=== PATIENT | male | born 1955 | race American Indian/Alaskan Native ===

== ENCOUNTER 2017-10-22 01:00 | Emergency (ER) | payer BC, MEDICARE ==
[2017-10-22] MEDS ORDERED: NACL 0.9% 1000 ML 1,000 ML ONE (01:23)
[2017-10-22] MEDS ORDERED: KEPPRA 1,000 MG/NS 0.75% 100ML 1,000 MG/100 ML BAG IV ONE (01:24)
[2017-10-22 01:52] LABS: Basophils % (Auto) 0.3 % (0.0-1.8); Eosinophils % (Auto) 0.2 % (0.0-4.3); Hematocrit 37.4 % (35.5-45.6); Hemoglobin 12.3 gm/dl (11.8-15.2); Mean Corpuscular HGB Conc 33 % (32-34); Mean Corpuscular Hemoglobin 29 pg (28-32); Mean Corpuscular Volume 89 fl (84-94); Platelet Count 253 K/mm3 (140-440); Red Blood Count 4.21 M/mm3 (3.65-5.03); Red Cell Distribution Width 16.9 % (13.2-15.2); White Blood Count 12.6 K/mm3 (4.5-11.0)
[2017-10-22 02:07] LABS: Bilirubin,Urine NEG (Negative); Blood,Urine NEG (Negative); Ketones,Urine NEG (Negative); Leukocyte Esterase,Urine NEG (Negative); Mucus,Urine FEW /HPF; Nitrite,Urine NEG (Negative); Protein,Urine <15 mg/dL mg/dL (Negative); Urobilinogen,Urine < 2.0 mg/dL (<2.0)
[2017-10-22 02:17] LABS: Alanine Aminotransferase 33 units/L (7-56); Albumin 3.6 g/dL (3.9-5); Albumin/Globulin Ratio 1.4 %; Alkaline Phosphatase 85 units/L (35-129); BUN/Creatinine Ratio 20; Blood Urea Nitrogen 16 mg/dL (9-20); Calcium 9.1 mg/dL (8.4-10.2); Carbon Dioxide 30 mmol/L (22-30); Creatine Kinase 109 units/L (55-170); Creatine Kinase MB 2.9 ng/mL (0.0-4.0); Glucose 91 mg/dL (75-100); Total Protein 6.1 g/dL (6.3-8.2)
--- NOTE | 2017-10-22 03:07 | XRay Report ---
FINAL REPORT EXAM: XR CHEST 1V AP HISTORY: CHF TECHNIQUE: A portable upright view of the chest was submitted. FINDINGS: The heart is mildly enlarged. The lungs appear congested. There is an area of alveolar consolidation in the right upper lobe which is indeterminate. Pleural fluid is not seen. The thoracic aorta is mildly tortuous. The skeletal structures do not show any acute changes. IMPRESSION: Cardiomegaly with pulmonary vascular congestion. Indeterminate area of alveolar consolidation in the right upper lobe.
[2017-10-22 03:38] LABS: Anion Gap 17 mmol/L; Chloride 98.3 mmol/L (98-107); Cholesterol 136 mg/dL (50-199); HDL Cholesterol 82 mg/dL (40-59); LDL Cholesterol,Direct 44 mg/dL (50-130); Potassium 4.3 mmol/L (3.6-5.0); Sodium 141 mmol/L (137-145); Triglycerides 52 mg/dL (2-149)
--- NOTE | 2017-10-22 04:28 | Cat Scan Report ---
FINAL REPORT EXAM: CT HEAD/BRAIN WO CON HISTORY: ams TECHNIQUE: Routine axial imaging was obtained of the brain without IV contrast. There are no previous studies available for comparison FINDINGS: There is an irregular area of diminished attenuation centered in the white matter of the right frontal lobe and adjacent temporal lobe extending partially out into the cortex. There is associated right to left subfalcine shift of 4.8 millimeters. The overall findings are compatible with an invasive neoplasm. There is no evidence of hemorrhage or infarct. The ventricular system otherwise is normal in size. The basal cisterns appear well maintained. The sinuses reveal mucosal thickening in the left maxillary sinus. The mastoid air cells are well pneumatized. 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 MRI is recommended for further evaluation No evidence of acute stroke or hemorrhage otherwise. Mucosal thickening in the left max sinus.
--- NOTE | 2017-10-22 04:36 | Emergency Department Report ---
ED Altered Mental Status HPI - General Chief Complaint: Seizure Stated Complaint: SEIZURE Time Seen by Provider: 10/22/17 01:22 Source: EMS Mode of arrival: Stretcher Limitations: Altered Mental Status - History of Present Illness Initial Comments: 62 YO MALE WITH LUNG CANCER DX SEP 15, 2017, BROUGHT I BY EMS IN STATUS EPILEPTICUS. PT WAS FOUND SEIZING AT 12 MIDNIGHT ON THE FLOOR. HE WAS LAST SEEN WATCHING TV AND NEUROLOGICALLY NORMAL. HE WAS GIVEN 4MG OF VERSED AND 2G OF MAGNESIUM SULFATE BY EMS. PT RECEIVED ATIVAN 2MG AND 1000MG OF KEPPRA IMMEDIATELY WHEN HE CAME TO [facility] ED. PT PLACED ON FACE MASK AND CONTINUED TO BREATHE ON HIS OWN. H/O LUNG CANCER WITH METASTATIC LESIONS TO THE BRAIN. PT RECEIVED 10 ROUNDS OF RADIATION TO THE BRAIN MASS AN WHILE IN [place] BUT HAS NTO RECEIVED ANY TREATMENT FOR THE LUNG CANCER. MD Complaint: altered mental status, decreased responsiveness -: During the night (12 MIDNIGHT) Severity: severe Consistency of Symptoms: constant Context: cancer, other (BRAIN METS AND LUNG CANCER) Associated Symptoms: incontinence Treatments Prior to Arrival: other pre-hosp med (VERSED 4MG IV, MAGNESIUM SULFATE 2G IV) - Related Data Allergies Allergy/AdvReac Type Severity Reaction Status Date / Time No Known Allergies Allergy Verified 10/22/17 06:52 ED Review of Systems ROS: Stated complaint: SEIZURE Other details as noted in HPI Comment: Unobtainable due to pts medical conditions ED Past Medical Hx - Past Medical History Previous Medical History?: Yes Additional medical history: Lung CA, and lesionS IN THE BRAIN, RADIATION TO THE BRAIN - Surgical History Past Surgical History?: No - Family History Family history: hypertension - Social History Smoking Status: Former Smoker Substance Use Type: Alcohol, Other ED Physical Exam - General Limitations: Altered Mental Status (UNABLE TO ANSWER ANY QUESTIONS) General appearance: in distress (SEIZING) - Head Head exam: Present: atraumatic, normocephalic - Eye Eye exam: Present: PERRL (4MM AND REACTIVE) Pupils: Present: normal accommodation - ENT ENT exam: Present: mucous membranes moist - Neck Neck exam: Present: normal inspection, full ROM - Respiratory Respiratory exam: Present: normal lung sounds bilaterally. Absent: respiratory distress - Cardiovascular Cardiovascular Exam: Present: normal rhythm, tachycardia - GI/Abdominal GI/Abdominal exam: Present: soft. Absent: distended, tenderness, guarding - Rectal Rectal exam: Present: deferred - Extremities Exam Extremities exam: Present: normal inspection, full ROM - Back Exam Back exam: Present: normal inspection, full ROM - Neurological Exam Neurological exam: Present: altered - Skin Skin exam: Present: warm, dry, intact, normal color ED Course Vital Signs 10/22/17 10/22/17 10/22/17 01:02 01:10 01:15 Temperature 99.7 F H Pulse Rate 129 H 117 H Respiratory 15 24 Rate Blood Pressure 130/81 109/68 O2 Sat by Pulse 75 L 93 100 Oximetry 10/22/17 10/22/17 10/22/17 01:30 01:45 02:00 Temperature Pulse Rate 116 H 111 H 112 H Respiratory 23 21 23 Rate Blood Pressure 119/68 97/63 97/63 O2 Sat by Pulse 100 100 100 Oximetry 10/22/17 10/22/17 10/22/17 02:15 02:30 02:45 Temperature Pulse Rate 118 H 117 H 123 H Respiratory 27 H 25 H 22 Rate Blood Pressure 101/72 101/72 110/72 O2 Sat by Pulse 100 100 100 Oximetry 10/22/17 10/22/17 10/22/17 03:00 03:54 04:17 Temperature Pulse Rate 120 H 109 H Respiratory 24 18 25 H Rate Blood Pressure 110/72 120/76 O2 Sat by Pulse 100 93 100 Oximetry 10/22/17 10/22/17 10/22/17 04:30 04:46 05:00 Temperature Pulse Rate 118 H 116 H 112 H Respiratory 26 H 24 22 Rate Blood Pressure 120/76 116/72 O2 Sat by Pulse 96 94 99 Oximetry 10/22/17 10/22/17 10/22/17 05:16 05:30 05:46 Temperature Pulse Rate 122 H 123 H 121 H Respiratory 19 25 H 24 Rate Blood Pressure 116/72 120/72 120/72 O2 Sat by Pulse 96 95 94 Oximetry 10/22/17 10/22/17 10/22/17 06:00 06:16 06:30 Temperature Pulse Rate 121 H 124 H 116 H Respiratory 26 H 21 23 Rate Blood Pressure 117/72 117/72 114/68 O2 Sat by Pulse 95 96 98 Oximetry 10/22/17 06:46 Temperature Pulse Rate 116 H Respiratory 23 Rate Blood Pressure 114/68 O2 Sat by Pulse 96 Oximetry - Reevaluation(s) Reevaluation #1: 10/22/17 04:44 PT IS STILL UNRESPONSIVE AND HAS NOT WOKEN UP. HIS DAUGHTER IS HERE AND HAS POWER OF [employer] . SHE RECENTLY SIGNED THE PAPERWORK AT HIS DOCTORS OFFICE. 10/22/17 07:32 PT IS BREATHING ON HIS OWN. THERE IS A POSSIBILITY THAT HE MAY NEED TO BE INTUBATED IF HE IS NO LONGER ABLE TO HANDLE HIS SECRETIONS OR THE HERNIATION INCREASES - Lab Data Result diagrams: 10/22/17 01:20 10/22/17 01:20 Lab Results 10/22/17 10/22/17 10/22/17 Range/Units 01:20 01:20 01:20 WBC 12.6 H (4.5-11.0) K/mm3 RBC 4.21 (3.65-5.03) M/mm3 Hgb 12.3 (11.8-15.2) gm/dl Hct 37.4 (35.5-45.6) % MCV 89 (84-94) fl MCH 29 (28-32) pg MCHC 33 (32-34) % RDW 16.9 H (13.2-15.2) % Plt Count 253 (140-440) K/mm3 Lymph % (Auto) 9.2 L (13.4-35.0) % [place] % (Auto) 6.6 (0.0-7.3) % Eos % (Auto) 0.2 (0.0-4.3) % Baso % (Auto) 0.3 (0.0-1.8) % Lymph # 1.2 (1.2-5.4) K/mm3 Marin # 0.8 (0.0-0.8) K/mm3 Eos # 0.0 (0.0-0.4) K/mm3 Baso # 0.0 (0.0-0.1) K/mm3 Seg Neutrophils % 83.7 H (40.0-70.0) % Seg Neutrophils # 10.5 H (1.8-7.7) K/mm3 Sodium 141 (137-145) mmol/L Potassium 4.3 (3.6-5.0) mmol/L Chloride 98.3 (98-107) mmol/L Carbon Dioxide 30 (22-30) mmol/L Anion Gap 17 mmol/L BUN 16 (9-20) mg/dL Creatinine 0.8 (0.8-1.5) mg/dL Estimated GFR > 60 ml/min BUN/Creatinine Ratio 20 % Glucose 91 (75-100) mg/dL Lactic Acid 2.40 H* (0.7-2.0) mmol/L Calcium 9.1 (8.4-10.2) mg/dL Total Bilirubin 0.20 (0.1-1.2) mg/dL AST 14 (5-40) units/L ALT 33 (7-56) units/L Alkaline Phosphatase 85 (35-129) units/L Total Creatine Kinase 109 (55-170) units/L CK-MB (CK-2) 2.9 (0.0-4.0) ng/mL CK-MB (CK-2) Rel Index 2.6 (0-4) Troponin T 0.032 H (0.00-0.029) ng/mL C-Reactive Protein (0.00-1.30) mg/dL NT-Pro-B Natriuret Pep (0-900) pg/mL Total Protein 6.1 L (6.3-8.2) g/dL Albumin 3.6 L (3.9-5) g/dL Albumin/Globulin Ratio 1.4 % Triglycerides 52 (2-149) mg/dL Cholesterol 136 (50-199) mg/dL LDL Cholesterol Direct 44 L (50-130) mg/dL HDL Cholesterol 82 H (40-59) mg/dL Cholesterol/HDL Ratio 1.65 % Urine Color (Yellow) Urine Turbidity (Clear) Urine pH (5.0-7.0) Ur Specific [place] (1.003-1.030) Urine Protein (Negative) mg/dL Urine Glucose (UA) (Negative) mg/dL Urine Ketones (Negative) mg/dL Urine Blood (Negative) Urine Nitrite (Negative) Urine Bilirubin (Negative) Urine Urobilinogen (<2.0) mg/dL Ur Leukocyte Esterase (Negative) Urine WBC (Auto) (0.0-6.0) /HPF Urine RBC (Auto) (0.0-6.0) /HPF U Epithel Cells (Auto) (0-13.0) /HPF Amorphous Crystals Hyaline Casts /LPF Urine Mucus /HPF 10/22/17 10/22/17 10/22/17 Range/Units 01:20 01:20 01:22 WBC (4.5-11.0) K/mm3 RBC (3.65-5.03) M/mm3 Hgb (11.8-15.2) gm/dl Hct (35.5-45.6) % MCV (84-94) fl MCH (28-32) pg MCHC (32-34) % RDW (13.2-15.2) % Plt Count (140-440) K/mm3 Lymph % (Auto) (13.4-35.0) % [place] % (Auto) (0.0-7.3) % Eos % (Auto) (0.0-4.3) % Baso % (Auto) (0.0-1.8) % Lymph # (1.2-5.4) K/mm3 Marin # (0.0-0.8) K/mm3 Eos # (0.0-0.4) K/mm3 Baso # (0.0-0.1) K/mm3 Seg Neutrophils % (40.0-70.0) % Seg Neutrophils # (1.8-7.7) K/mm3 Sodium (137-145) mmol/L Potassium (3.6-5.0) mmol/L Chloride (98-107) mmol/L Carbon Dioxide (22-30) mmol/L Anion Gap mmol/L BUN (9-20) mg/dL Creatinine (0.8-1.5) mg/dL Estimated GFR ml/min BUN/Creatinine Ratio % Glucose (75-100) mg/dL Lactic Acid (0.7-2.0) mmol/L Calcium (8.4-10.2) mg/dL Total Bilirubin (0.1-1.2) mg/dL AST (5-40) units/L ALT (7-56) units/L Alkaline Phosphatase (35-129) units/L Total Creatine Kinase (55-170) units/L CK-MB (CK-2) (0.0-4.0) ng/mL CK-MB (CK-2) Rel Index (0-4) Troponin T (0.00-0.029) ng/mL C-Reactive Protein 3.70 H (0.00-1.30) mg/dL NT-Pro-B Natriuret Pep 14.47 (0-900) pg/mL Total Protein (6.3-8.2) g/dL Albumin (3.9-5) g/dL Albumin/Globulin Ratio % Triglycerides (2-149) mg/dL Cholesterol (50-199) mg/dL LDL Cholesterol Direct (50-130) mg/dL HDL Cholesterol (40-59) mg/dL Cholesterol/HDL Ratio % Urine Color Yellow (Yellow) Urine Turbidity Clear (Clear) Urine pH 5.0 (5.0-7.0) Ur Specific [place] 1.020 (1.003-1.030) Urine Protein <15 mg/dl (Negative) mg/dL Urine Glucose (UA) 50 (Negative) mg/dL Urine Ketones Neg (Negative) mg/dL Urine Blood Neg (Negative) Urine Nitrite Neg (Negative) Urine Bilirubin Neg (Negative) Urine Urobilinogen < 2.0 (<2.0) mg/dL Ur Leukocyte Esterase Neg (Negative) Urine WBC (Auto) 1.0 (0.0-6.0) /HPF Urine RBC (Auto) 3.0 (0.0-6.0) /HPF U Epithel Cells (Auto) < 1.0 (0-13.0) /HPF Amorphous Crystals 2+ Hyaline Casts 1 /LPF Urine Mucus Few /HPF - EKG Data -: EKG Interpreted by Mo EKG shows normal: axis, QRS complexes, ST-T waves Rate: tachycardia - Radiology Data Radiology results: report reviewed ( CT ABD; ) Critical Care Time: Yes Critical care time in (mins) excluding proc time.: 120 Critical care attestation.: If time is entered above; I have spent that time in minutes in the direct care of this critically ill patient, excluding procedure time. [facility] ED Disposition Clinical Impression: Brain mass, Herniation of the brain, Pleural effusion Lung cancer Qualifiers: Laterality: right Lung location: upper lobe of lung Qualified Code(s): C34.11 - Malignant neoplasm of upper lobe, right bronchus or lung Pneumonia Qualifiers: Pneumonia type: due to unspecified organism Laterality: bilateral Lung location : lower lobe of lung Qualified Code(s): J18.9 - Pneumonia, unspecified organism Disposition: DC/[place]-70 ANOTHER TYPE HLTHCARE Is pt being admited?: Yes Does the pt Need Aspirin: No Condition: Critical Instructions: Bacterial Pneumonia (ED) Referrals: PRIMARY CARE, [Primary Care Provider] - 3-5 Days Time of Disposition: 07:33 (DR [facility] HAS ACCEPTED THE PT.)
--- NOTE | 2017-10-22 04:46 | Cat Scan Report ---
FINAL REPORT EXAM: CT ANGIO CHEST HISTORY: ams TECHNIQUE: A CT angiogram was performed following the intravenous injection of iodinated contrast. MIP rotational, sagittal coronal reconstructions were reviewed. FINDINGS: There is an invasive neoplasm in the right upper lobe contiguous with the hilum measuring 6.5 cm x 6.5 cm by 4.9 cm. The lungs otherwise reveal atelectatic changes in both lower lobes with small effusions. There is additional mild atelectatic changes in the right middle lobe. There is no evidence of pulmonary embolus or aortic dissection. The heart size is normal. Adenopathy is not seen. In the upper abdomen the right adrenal gland appears normal. The left adrenal gland is not seen. In the left hepatic lobe there is an indeterminate 6.8 millimeter low-density focus. The skeletal structures reveal multilevel disc degeneration in the thoracic spine. At the thoracic inlet the thyroid gland appears normal. IMPRESSION: No evidence of pulmonary embolus or aortic dissection. Invasive right upper lobe neoplasm extending to the right hilum with measurements as described. Atelectatic changes/infiltrates in both lower lobes with very small effusions. Additional mild atelectasis in the right middle lobe. 6.8 millimeter low-density focus in the left hepatic lobe. This represents a small cyst is uncertain. Metastasis cannot entirely be excluded.
--- NOTE | 2017-10-22 04:51 | Cat Scan Report ---
FINAL REPORT EXAM: CT ABDOMEN PELVIS W CON HISTORY: ams TECHNIQUE: Routine axial imaging was obtained of the abdomen and pelvis following the intravenous injection of iodinated contrast. Delayed axial imaging was obtained along with coronal and parasagittal reconstructions. FINDINGS: The lung bases reveal bilateral lower lobe atelectasis/infiltrates. The liver is normal size reveals several sub centimeter diameter low-attenuation foci the largest in the left hepatic lobe measuring 6.8 millimeters in dimension. These are non specific. The gallbladder, spleen, pancreas, and adrenal glands appear normal. The kidneys enhance normally. There is no evidence of hydronephrosis. The renal collecting structures appear normal. The vascular structures enhance normally. The bowel loops are normal in caliber and course. The appendix appears normal. There is no evidence of free fluid or lymphadenopathy. Free air is not seen. In the pelvis there is a Ibrahim catheter in the bladder. The prostate gland appears normal. The skeletal structures reveal mild disc degeneration in the mid lumbar spine. IMPRESSION: No acute process in the abdomen and pelvis. Bilateral lower lobe atelectasis/infiltrates. Several sub centimeter in diameter low-attenuation foci in both hepatic lobes as described. With these represent small cysts is uncertain. Metastases cannot entirely be excluded.
[2017-10-22] MEDS ORDERED: DECADRON 20 MG in NACL 0.9% 50 ML IV ONE (05:57)
[2017-10-22 09:20] VITALS: BP 107/67
[2017-10-22] MEDS ORDERED: ZOSYN/NS 3.375GM/50ML 3.375 GM/50 ML BAG IV SCH (14:00)
== END 2017-10-22 10:02 | disposition other institution (70) ==
LOC: ED 01:00
DX: J18.9 Pneumonia, unspecified organism (principal); G93.89 Other specified disorders of brain; K46.9 Unspecified abdominal hernia without obstruction or gangrene; J90 Pleural effusion, not elsewhere classified; C34.11 Malignant neoplasm of upper lobe, right bronchus or lung
CPT/HCPCS: 36415; 70450; 71010; 71275; 74177; 80053; 80061; 81001; 82140; 82550; 82553; 83880; 84484; 85025; 86140; 96365; 99291; 99292; J1100; J1953; J7030; Q9967; J2543

== ENCOUNTER 2017-10-25 05:46 | Emergency (ER) | payer BC ==
--- NOTE | 2017-10-25 06:49 | Cat Scan Report ---
FINAL REPORT EXAM: CT HEAD/BRAIN WO CON HISTORY: left facial droop and rt sided weakness TECHNIQUE: CT imaging is acquired through the brain without contrast. Transaxial reformations are provided. PRIORS: 10/22/2017 FINDINGS: Two heterogeneous right frontal lobe masses are present on axial image 18 measuring up to 19 millimeters and adjacent to the falx with mass effect on the right frontal horn measuring up to 16 millimeters on axial image 36. Right to left midline shift with subfalcine herniation is slightly worse from prior measuring up to 7 millimeters at the level of the foramina of [place]. The basilar cisterns are patent. No acute intracranial hemorrhage. Normal spherical shape of the globes. No significant abnormality involving the imaged paranasal sinuses or mastoid air cells. IMPRESSION: Subfalcine herniation with right to left midline shift may be slightly worse compared to prior non measuring up to 7 millimeters at the level of the foramina of [place]. The basilar cisterns are patent and there is no transtentorial or tonsillar herniation. No acute intracranial hemorrhage. At least 2 right frontal lobe masses are suspected measuring up to 19 millimeters. MRI follow-up with contrast and neuro surgical consultation are recommended if not already obtained. Notification initiated via Aidan senior support analyst immediately following this dictation on 10/25/2017.
[2017-10-25 07:17] LABS: Basophils % (Auto) 0.2 % (0.0-1.8); Eosinophils % (Auto) 0.1 % (0.0-4.3); Hematocrit 41.1 % (35.5-45.6); Hemoglobin 13.6 gm/dl (11.8-15.2); Mean Corpuscular HGB Conc 33 % (32-34); Mean Corpuscular Hemoglobin 29 pg (28-32); Mean Corpuscular Volume 88 fl (84-94); Platelet Count 247 K/mm3 (140-440); Red Blood Count 4.65 M/mm3 (3.65-5.03); Red Cell Distribution Width 16.5 % (13.2-15.2); White Blood Count 10.1 K/mm3 (4.5-11.0)
[2017-10-25 07:21] LABS: INR 0.96 (0.87-1.13)
[2017-10-25 07:22] LABS: Partial Thromboplastin Time 25.1 Sec. (24.2-36.6)
[2017-10-25 07:33] LABS: BUN/Creatinine Ratio 22; Blood Urea Nitrogen 13 mg/dL (9-20); Calcium 9.2 mg/dL (8.4-10.2); Carbon Dioxide 23 mmol/L (22-30); Chloride 103.3 mmol/L (98-107); Glucose 78 mg/dL (75-100); Potassium 3.9 mmol/L (3.6-5.0); Sodium 142 mmol/L (137-145)
[2017-10-25 07:36] LABS: Anion Gap 20 mmol/L
[2017-10-25] MEDS ORDERED: KEPPRA 1,000 MG/NS 0.75% 100ML 1,000 MG/100 ML BAG IV ONE (08:30)
--- NOTE | 2017-10-25 08:34 | Emergency Department Report ---
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 Patient was out of town in [place] visiting his sister on September 16 when he required admission to the hospital left-sided facial drooping urinary incontinence. It was found the patient had lung cancer with metastases to the brain. On the patient presented here with the and seizures. CT showed frontal lobe mass with subfalcine herniation with right to left shift of 4.8 cm. Patient was transferred to Dr. Cifuentes neurosurgeon at [facility] on the night and was discharged yesterday afternoon. Patient is currently on Keppra 1000 mg twice a day and prednisone 20 mg 3 times a day prescribed after discharge yesterday . Patient apparently woke up at 3:30 AM with left facial droop, left arm and left leg paralysis and he is currently unable to ambulate. No pain reported. Patient has seen the radiation oncologist and is scheduled to see Dr. SOMMER but does not have any local workup yet outside of ER visits and hospitalizations. Patient is DO NOT RESUSCITATE inside a DO NOT RESUSCITATE last hospital visit. - Related Data Home Medications: Home Medications Medication Instructions Recorded Confirmed Last Taken Famotidine [Pepcid] 20 mg PO QDAY 10/25/17 10/25/17 Unknown levETIRAcetam [Keppra] 1,000 mg PO BID 10/25/17 10/25/17 Unknown predniSONE [Deltasone] 60 mg PO QDAY 10/25/17 10/25/17 Unknown Allergies/Adverse Reactions: Allergies Allergy/AdvReac Type Severity Reaction Status Date / Time No Known Allergies Allergy Verified 10/25/17 06:03 ED Review of Systems ROS: Stated complaint: POSS STROKE Other details as noted in HPI Comment: All other systems reviewed and negative Other: Constitutional: No fevers chills Eyes: No eye pain visual changes ENT: No ear pain or throat pain Neck: Denies pain Respiratory: Denies cough wheezing shortness of breath Cardiovascular: Denies chest pain, palpitations, syncope GI: Denies abdominal pain, nausea, vomiting, diarrhea : Denies dysuria Musculoskeletal: Denies back pain Skin: Denies rash, lesions, erythema Neurologic: Denies headache Psychiatric: Denies suicidal ideation, hallucinations ED Past Medical Hx - Past Medical History Previous Medical History?: Yes Hx Seizures: Yes Additional medical history: Lung CA, and lesionS IN THE BRAIN, RADIATION TO THE BRAIN - Surgical History Past Surgical History?: No - Social History Smoking Status: Never Smoker Substance Use Type: Alcohol - Medications Home Medications: Home Medications Medication Instructions Recorded Confirmed Last Taken Type Famotidine [Pepcid] 20 mg PO QDAY 10/25/17 10/25/17 Unknown History levETIRAcetam [Keppra] 1,000 mg PO BID 10/25/17 10/25/17 Unknown History predniSONE [Deltasone] 60 mg PO QDAY 10/25/17 10/25/17 Unknown History ED Neuro Physical Exam - General Limitations: Physical Limitation Suspected Stroke: Yes - NIHSS Assessment Interval: Baseline 1a. Level of Consciousness: alert 1b. LOC Questions: answers correctly 1c. LOC Commands: performs tasks correctly 2. Best Gaze: normal 3. Visual: no visual loss 4. Facial Palsy: partial paralysis (left) 5b. Motor Arm Right: no drift 5a. Motor Arm Left: no gravity effort 6a. Motor Leg Left: no gravity effort 6b. Motor Leg Right: some gravity effort 7. Limb Ataxia: absent 8. Sensory: normal 9. Best Language: no aphasia 10. Dysarthria: normal 11. Extinction/Inattention: no abnormality Total Score: 10 Stroke Severity: Moderate Stroke - Other Other exam information: General: No limitations, patient is alert in no acute distress Head exam: Atraumatic, normocephalic Eyes exam: Normal appearance, pupils equal reactive to light, extraocular movements intact ENT: Moist mucous membrane, normal oropharynx Neck exam: Normal inspection, full range of motion, no meningismus nontender Respiratory exam: Clear to auscultation bilateral, no wheezes, rales, crackles Cardiovascular: Normal rate and rhythm, normal heart sounds Abdomen: Soft, nondistended, and nontender, with normal bowel sounds, no rebound, or guarding Extremity: Full range of motion normal inspection no deformity Back: Normal Inspection, full range of motion, no tenderness Neurologic: Alert, oriented x3, left-sided facial droop, right-sided weakness, see NIH stroke scale Psychiatric: normal affect, normal mood Skin: Warm, dry, intact ED Course Vital Signs 10/25/17 10/25/17 10/25/17 05:55 07:04 07:10 Temperature 99.1 F 100.8 F H Pulse Rate 106 H 98 H 94 H Respiratory 18 10 L 20 Rate Blood Pressure 142/94 Blood Pressure 138/95 [Left] O2 Sat by Pulse 96 95 Oximetry 10/25/17 10/25/17 10/25/17 07:16 07:30 07:46 Temperature Pulse Rate 116 H 101 H 107 H Respiratory 22 17 19 Rate Blood Pressure 138/95 138/95 138/95 Blood Pressure [Left] O2 Sat by Pulse 93 93 96 Oximetry 10/25/17 10/25/17 10/25/17 08:00 08:16 08:30 Temperature Pulse Rate 111 H 116 H 117 H Respiratory 19 19 19 Rate Blood Pressure 138/95 132/89 138/95 Blood Pressure [Left] O2 Sat by Pulse 97 98 95 Oximetry 10/25/17 10/25/17 10/25/17 08:46 09:00 09:12 Temperature Pulse Rate 116 H 113 H Respiratory 19 21 16 Rate Blood Pressure 138/95 139/96 Blood Pressure [Left] O2 Sat by Pulse 97 97 95 Oximetry 10/25/17 13:45 Temperature Pulse Rate 117 H Respiratory 21 Rate Blood Pressure Blood Pressure 139/87 [Left] O2 Sat by Pulse 98 Oximetry - Reevaluation(s) Reevaluation #1: 10/25/17 09:30 Patient treated with Keppra 1 g to minute seizure activity and Decadron as recommended by neurosurgery Reevaluation #2: 10/25/17 16:26 pt still awaiting transfer. will continue meds - Consultations Consultation #1: 10/25/17 08:[address] Cifuentes neurosurgeon with [facility] that recently admitted and discharged patient. Has accepted patient back for readmission. Recommends Decadron 10 mg every 6 hours - Lab Data Result diagrams: 10/25/17 06:59 10/25/17 06:59 Lab Results 10/25/17 10/25/17 10/25/17 Range/Units 06:03 06:50 06:50 WBC (4.5-11.0) K/mm3 RBC (3.65-5.03) M/mm3 Hgb (11.8-15.2) gm/dl Hct (35.5-45.6) % MCV (84-94) fl MCH (28-32) pg MCHC (32-34) % RDW (13.2-15.2) % Plt Count (140-440) K/mm3 Lymph % (Auto) (13.4-35.0) % Coos % (Auto) (0.0-7.3) % Eos % (Auto) (0.0-4.3) % Baso % (Auto) (0.0-1.8) % Lymph # (1.2-5.4) K/mm3 Coos # (0.0-0.8) K/mm3 Eos # (0.0-0.4) K/mm3 Baso # (0.0-0.1) K/mm3 Seg Neutrophils % (40.0-70.0) % Seg Neutrophils # (1.8-7.7) K/mm3 PT 13.3 (12.2-14.9) Sec. INR 0.96 (0.87-1.13) APTT 25.1 (24.2-36.6) Sec. Thrombin Time 15.4 (15.1-19.6) Sec. Sodium (137-145) mmol/L Potassium (3.6-5.0) mmol/L Chloride (98-107) mmol/L Carbon Dioxide (22-30) mmol/L Anion Gap mmol/L BUN (9-20) mg/dL Creatinine (0.8-1.5) mg/dL Estimated GFR ml/min BUN/Creatinine Ratio % Glucose (75-100) mg/dL POC Glucose 75 (70-105) Calcium (8.4-10.2) mg/dL Troponin T (0.00-0.029) ng/mL 10/25/17 10/25/17 Range/Units 06:59 06:59 WBC 10.1 (4.5-11.0) K/mm3 RBC 4.65 (3.65-5.03) M/mm3 Hgb 13.6 (11.8-15.2) gm/dl Hct 41.1 (35.5-45.6) % MCV 88 (84-94) fl MCH 29 (28-32) pg MCHC 33 (32-34) % RDW 16.5 H (13.2-15.2) % Plt Count 247 (140-440) K/mm3 Lymph % (Auto) 12.8 L (13.4-35.0) % Coos % (Auto) 9.0 H (0.0-7.3) % Eos % (Auto) 0.1 (0.0-4.3) % Baso % (Auto) 0.2 (0.0-1.8) % Lymph # 1.3 (1.2-5.4) K/mm3 Coos # 0.9 H (0.0-0.8) K/mm3 Eos # 0.0 (0.0-0.4) K/mm3 Baso # 0.0 (0.0-0.1) K/mm3 Seg Neutrophils % 77.9 H (40.0-70.0) % Seg Neutrophils # 7.9 H (1.8-7.7) K/mm3 PT (12.2-14.9) Sec. INR (0.87-1.13) APTT (24.2-36.6) Sec. Thrombin Time (15.1-19.6) Sec. Sodium 142 (137-145) mmol/L Potassium 3.9 (3.6-5.0) mmol/L Chloride 103.3 (98-107) mmol/L Carbon Dioxide 23 D (22-30) mmol/L Anion Gap 20 mmol/L BUN 13 (9-20) mg/dL Creatinine 0.6 L (0.8-1.5) mg/dL Estimated GFR > 60 ml/min BUN/Creatinine Ratio 22 % Glucose 78 (75-100) mg/dL POC Glucose (70-105) Calcium 9.2 (8.4-10.2) mg/dL Troponin T < 0.010 (0.00-0.029) ng/mL - EKG Data -: EKG Interpreted by [place] EKG shows normal: sinus rhythm, axis (-12), QRS complexes (86), ST-T waves (no stemi/t inv) Rate: tachycardia (102) When compared to previous EKG there are: no significant change (compared to 10/22) - Radiology Data Radiology results: report reviewed CT head: At least 2 frontal low masses are suspected. Subfalcine herniation with [id number] shift may be slightly worse compared to prior measuring up to 7 mm. No hemorrhage - Differential Diagnosis ICH, metastatic brain lesion Critical care attestation.: If time is entered above; I have spent that time in minutes in the direct care of this critically ill patient, excluding procedure time. ED Disposition Clinical Impression: Brain mass, Midline shift of brain, Left-sided weakness, Weakness on left side of face, Metastatic lung carcinoma Disposition: DC/TX-70 ANOTHER TYPE HLTHCARE Is pt being admited?: No Condition: Stable Referrals: PASCALE NICHOLS MD [Primary Care Provider] - 3-5 Days Time of Disposition: 09:47 (Dr Cifuentes/neurosurg)
[2017-10-25] MEDS ORDERED: DECADRON IV ONE (08:40)
[2017-10-25] MEDS ORDERED: DECADRON IV SCH (16:00)
[2017-10-25] MEDS ORDERED: NACL 0.9% 1000 ML 1,000 ML IV ONE (16:30)
[2017-10-25 18:36] VITALS: BP 128/88
[2017-10-25] MEDS ORDERED: KEPPRA 1,000 MG in D5W 100 ML IV SCH (22:00)
[2017-10-25] MEDS ORDERED: KEPPRA 1,000 MG/NS 0.75% 100ML 1,000 MG/100 ML BAG IV SCH (22:00)
[2017-10-26] MEDS ORDERED: PEPCID IV SCH (10:00)
== END 2017-10-25 20:46 | disposition other institution (70) ==
LOC: ED 05:46
DX: C79.31 Secondary malignant neoplasm of brain (principal); G93.89 Other specified disorders of brain; R13.19 Other dysphagia; C34.90 Malignant neoplasm of unspecified part of unspecified bronchus or lung; R53.1 Weakness; R56.9 Unspecified convulsions
CPT/HCPCS: 36415; 70450; 80048; 82962; 84484; 85025; 85610; 85670; 85730; 93005; 93010; 96361; 96365; 96375; 96376; 99285; J1100; J1953; J7030